=== PATIENT | male | born 1990 | race Caucasian/White ===

== ENCOUNTER → 2018-10-06 | Outpatient (CLI) | payer BC ==
[2015-05-02 20:10] VITALS: BP 146/87
--- NOTE | 2018-10-06 10:41 | RAD ---
UE VENOUS DUPLEX LEFT UPPER EXTREMITY Left upper extremity venous duplex was performed using B-mode, color-flow, and spectral Doppler. Indication: Swelling of the left upper extremity Findings: The Left internal jugular, subclavian, axillary, brachial, basilic, and cephalic veins were assessed for patency. All the vessels were found to be compressible and demonstrated phasic, competent to flow with normal augmentation. Impression: 1. Negative study for acute DVT of the left upper extremity. 2. Mild soft tissue swelling in the region of ecchymosis. Electronically signed by: Juan M Pereira MD (10/06/2018 10:38 AM) [facility]
== END | disposition home or self-care (01) ==
LOC: US 08:39
PROVIDERS: ATTEND Family Medicine
DX: S50.02XA Contusion of left elbow, initial encounter (principal); R22.32 Localized swelling, mass and lump, left upper limb; X58.XXXA Exposure to other specified factors, initial encounter; Y93.89 Activity, other specified; Y92.89 Other specified places as the place of occurrence of the external cause; Y99.8 Other external cause status
CPT/HCPCS: 93971

== ENCOUNTER → 2019-11-07 | Outpatient (CLI) | payer BC ==
[2015-05-02 20:10] VITALS: BP 146/87
--- NOTE | 2019-11-07 16:13 | RAD ---
EXAM: Ultrasound neck soft tissues. HISTORY: Palpable focus at jaw line. COMPARISON: None. FINDINGS: Sonographic evaluation of the neck soft tissues was performed at the site of concern. In the right submandibular region at the site of concern, a lymph node measures 1.3 x 1.0 x 0.9 cm. It has a prominent fatty hilus. Another small submandibular lymph nodes measure 11 mm and 7 mm, respectively. The submandibular gland is unremarkable. IMPRESSION: 1. The palpable focus corresponds with a 13 mm benign-appearing right submandibular lymph node. Recommend ongoing clinical follow-up of palpable foci, with imaging reassessment if they persist after treatment or are unstable. Electronically signed by: Donna Stevens MD (11/07/2019 4:10 PM) [facility]
== END | disposition home or self-care (01) ==
LOC: DXRAD 14:12
PROVIDERS: ATTEND Nurse Practitioner Adult Health
DX: R22.2 Localized swelling, mass and lump, trunk (principal)
CPT/HCPCS: 76536

== ENCOUNTER → 2020-03-05 | Outpatient (CLI) | payer BC ==
[2015-05-02 20:10] VITALS: BP 146/87
--- NOTE | 2020-03-05 12:43 | RAD ---
EXAM: Chest, 2 views. HISTORY: Chest pain. COMPARISON: 07/18/2016 FINDINGS: 2 views of the chest are obtained. There is no infiltrate, pleural effusion or pneumothorax. The heart is normal in size. IMPRESSION: No acute pulmonary finding. Electronically signed by: Catherine Chaparro MD (03/05/2020 12:40 PM) [facility]
--- NOTE | 2020-03-05 12:48 | EKG ---
[address] [address] Test Date: 2020-03-05 Test Time: 12:40:36 Pat Name: ANAI CUMMINGS Department: Room: Gender: M Selling Manager: : 1990 Requested By: ZAHIRA MCCALLUM Order Number: [id number] Reading MD: Rich Sanders Measurements Intervals [place] Rate: 80 P: 36 [place]: 158 QRS: 53 QRSD: 94 T: 9 QT: 336 QTc: 391 Interpretive Statements SINUS RHYTHM Electronically Signed On 03-06-2020 10:22:19 CDT by Rich Sanders
== END ==
LOC: EKG 12:25
PROVIDERS: ATTEND Nurse Practitioner Adult Health
DX: R06.02 Shortness of breath (principal); R07.9 Chest pain, unspecified; R05 Cough; Z72.0 Tobacco use
CPT/HCPCS: 71046; 93005

== ENCOUNTER 2020-05-25 18:56 | Emergency (ER) | payer BC ==
[~2020-05-25] VITALS: Ht 177.8 cm; Wt 121.8 kg
--- NOTE | 2020-05-25 18:59 | PHYS DOC ---
Past History Past Medical History: No Pertinent History Past Surgical History Circumcision, Alcohol Use: Occasionally Drug Use: Cocaine, Marijuana, Other General Adult HPI: HPI: ".. I ve been hurting all day.. down here or the Rt..... I did try to eat some pizza but I can only keep 1 bite down...." " Just too nauseated" Patient is a 29 year old male who presents with above hx complaints of right lower abdomen pain. Pain has been present all day. Does have associated nausea with the pain. Patient denies any intake bad food. Patient denies any travel or specific ill contacts. Patient has had a fever off and on through the day. Patient has had history of previous kidney stone. Patient denies any problems with defecation or urination. No history of trauma. No history immunosuppression. No history of recent travel outside the [place] area. Patient normally follows with Dr. Stephanie Montano. Review of Systems: Review of Systems: Constitutional: Complains of fever or chills Eyes: Denies change in visual acuity HENT: Denies nasal congestion or sore throat Respiratory: Denies cough or shortness of breath Cardiovascular: Denies chest pain or edema GI: Complains of right lower quadrant abdominal pain, nausea. Denies, vomiting, bloody stools or diarrhea : Denies dysuria Musculoskeletal: Denies back pain or joint pain Integument: Denies rash Neurologic: Denies headache, focal weakness or sensory changes Endocrine: Denies polyuria or polydipsia Lymphatic: Denies swollen glands Psychiatric: Denies depression or anxiety Heart Score: HEART Score for Chest Pain: HEART Score for Chest Pain Response (Comments) Value History Slighlty/Non-Suspicious 0 ECG Normal 0 Age < 45 0 Risk Factors 1 or 2 Risk Factors 1 Troponin < Normal Limit 0 Total 1 Risk Factors: Risk Factors: DM, Current or recent (<one month) smoker, HTN, HLP, family history of CAD, obesity. Risk Scores: Score 0 - 3: 2.5% MACE over next 6 weeks - Discharge Home Score 4 - 6: 20.3% MACE over next 6 weeks - Admit for Clinical Observation Score 7 - 10: 72.7% MACE over next 6 weeks - Early Invasive Strategies Family History: Family History: There is a family history of kidney stones Current Medications: Current Meds: See nursing for home meds Allergies: Allergies: No known drug allergies Physical Exam: PE: Constitutional: Moderate acute distress, non-toxic appearance. [] HENT: Normocephalic, atraumatic, bilateral external ears normal, oropharynx moist, no oral exudates, nose normal. [] Eyes: PERRLA, EOMI, conjunctiva normal, no discharge. [] Neck: Normal range of motion, no tenderness, supple, no stridor. [] Cardiovascular: Tachycardia heart rate regular rhythm, no murmur [] Lungs & Thorax: Bilateral breath sounds equal at apex auscultation [] Abdomen: Bowel sounds normal, soft, right lower tenderness on palpation, no masses, no pulsatile masses. Localizes pain to the right lower quadrant on rebound. Does have right lower flank pain on percussion. Circumcised male. Testicles descended. Nontender Skin: Warm, dry, no erythema, no rash. [] Back: No tenderness, mild to moderate right lower CVA tenderness. [] Extremities: No tenderness, no cyanosis, no clubbing, ROM intact, no edema. Has psoas sign on right. Neurologic: Alert and oriented X 3, normal motor function, normal sensory function, no focal deficits noted. [] Psychologic: Affect anxious, judgement normal, mood normal. [] EKG: EKG: My interpretation EKG shows a sinus rhythm at 74 beats minute. No findings of acute morphology. [] Radiology/Procedures: Radiology/Procedures: [] IMAGING REPORT Signed PATIENT: ANAI CUMMINGSOUNT: [id number] : 1990 LOCATION: ER AGE: 29 SEX: M EXAM STATUS: REG ER ORD. PHYSICIAN: ADDY HANSON MD REASON: Right sided abdomen pain, fever PROCEDURE: CT ABD PELV W/ORAL&IV CONTRAST Study: CT abdomen/pelvis with intravenous contrast Indication: Right-sided abdominal pain. Fever. Comparison: None. Technique: Helical CT imaging performed of the abdomen and pelvis after the intravenous administration of 75 cc Omnipaque 300 contrast. Sagittal and coronal reformats were obtained. One or more of the following individualized dose reduction techniques were utilized for this examination: 1. Automated exposure control 2. Adjustment of the mA and/or kV according to patient size 3. Use of iterative reconstruction technique. Findings: The appendix is dilated and inflamed in keeping with acute appendicitis. This is well seen on image 77 series 2 with the lumen measuring up to 1.2 cm transverse. Reactive inflammatory changes of the adjacent ilium. Periappendiceal fatty stranding but there is no fluid collection to suggest an abscess. Unremarkable lower chest. Hepatic steatosis. Unremarkable gallbladder, pancreas and adrenal glands. The spleen is mildly prominent in size. Unremarkable kidneys. Inflammatory changes along a portion of the distal right ureter. Mild circumferential urinary bladder wall thickening. The left kidney and ureter are unremarkable. Within normal limits prostate. Inflammatory changes adjacent to the cecum. Otherwise the colon is within normal limits. Nonobstructed small bowel. Unremarkable stomach. Normal aortic caliber. No lymphadenopathy. Injection-related changes at the ventral right lower quadrant subcutaneous tissues. No acute or aggressive osseous process. Femoral head bone islands. Impression: 1. Dilated and inflamed appendix in keeping with acute appendicitis. No complicating features such as rupture or abscess formation. Reactive inflammatory changes of the adjacent cecum, ileum and a portion of the right ureter. 2. Hepatic steatosis. Electronically signed by: SYED PURI MD (05/25/2020 10:46 PM) [id number] DICTATED AND SIGNED BY: SYED PURI MD DATE: 05/25/206 CC: ADDY HANSON MD; ZAHIRA MCCALLUM NP ~ Course & Med Decision Making: Course & Med Decision Making Pertinent Labs and Imaging studies reviewed. (See chart for details) Discussed presentation, testing and treatment plan with and Dr. Rosenthal- Transfer to [facility]- Impression: 1. Abdomen Pain 2. Acute appendicitis 3. Leukocytosis 16.2 4. Lactic acid 1.1 5. Tobacco and Marijuana Use [] Dragon Disclaimer: Dragon Disclaimer: This electronic medical record was generated, in whole or in part, using a voice recognition dictation system. Departure Departure: Disposition: 01 HOME/RESIDENCE PRIOR TO ADM Condition: STABLE Referrals: ZAHIRA MCCALLUM NP (PCP) Justification of Admission: Justification of Admission: Justification of Admission Dx: Yes (Acute Appendicitis) Dragon Disclaimer This chart was dictated in whole or in part using Voice Recognition software in a busy, high-work load, and often noisy Emergency Department environment. It may contain unintended and wholly unrecognized errors or omissions. ADDY HANSON MD May 25, 2020 18:59
[2020-05-25] MEDS ORDERED: ONDANSETRON PF 4 MG/2 ML VIAL. ONE (19:01)
[2020-05-25] MEDS ORDERED: IV RINGERS SOLUTION,LACTATED 1,000 ML IV SCH (19:01)
[2020-05-25] MEDS ORDERED: MORPHINE SULFATE 10 MG/ML SYRINGE. ONE (19:02)
[2020-05-25] MEDS ORDERED: FAMOTIDINE 20 MG/2 ML VIAL IVP ONE (19:15)
[2020-05-25] MEDS ORDERED: ONDANSETRON PF 4 MG/2 ML VIAL. IVP ONE (19:15)
[2020-05-25] MEDS ORDERED: KETOROLAC 30 MG/ML VIAL. IVP ONE (19:15)
--- NOTE | 2020-05-25 19:52 | RAD ---
Three-view acute abdominal series. HISTORY:, Pain, fever 3 views were taken for an acute abdominal series. Lungs are clear. Heart is normal in size. There is no pleural effusion. There is no free air on the upright view of the abdomen or abnormal air-fluid levels. There are no abnormal calcifications. Bowel pattern is normal. IMPRESSION: 1. No acute chest disease. 2. No bowel obstruction or acute finding in the abdomen. 3. No abnormal calcifications. Electronically signed by: Lam Hawley MD (05/25/2020 7:49 PM) [facility]
[2020-05-25] MEDS ORDERED: MORPHINE SULFATE 10 MG/ML SYRINGE. SQ ONE (20:00)
--- NOTE | 2020-05-25 20:18 | EKG ---
[address] [address] Test Date: 2020-05-25 Test Time: 19:54:39 Pat Name: ANAI RAYMUNDOLANA Department: Room: Gender: M Family Sociologist: : 1990 Requested By: ADDY HANSON Order Number: [id number] Reading MD: Measurements Intervals [place] Rate: 74 P: 43 [place]: 156 QRS: 59 QRSD: 100 T: 0 QT: 346 QTc: 389 Interpretive Statements SINUS RHYTHM OTHERWISE NORMAL ECG RI6.02 No previous ECG available for comparison
[2020-05-25 20:20] LABS: BASO % 0 % (0-3); EOS % 0 % (0-3); HEMATOCRIT 50.2 % (39.0-53.0); HEMOGLOBIN 17.1 g/dL (13.0-17.5); LYMPH # 1.8 x10^3/uL (1.0-4.8); LYMPH % 11 % (24-48); MEAN CORPUSCULAR HEMOGLOBIN 33 pg (25-35); MEAN CORPUSCULAR HGB CONC 34 g/dL (31-37); MEAN CORPUSCULAR VOLUME 96 fL (79-100); MONO # 1.2 x10^3/uL (0.0-1.1); MONO % 7 % (0-9); NEUT # 13.2 x10^3uL (1.8-7.7); NEUT % 81 % (31-73); PLATELET COUNT 245 x10^3/uL (140-400); RED BLOOD COUNT 5.23 x10^6/uL (4.30-5.70); RED CELL DISTRIBUTION WIDTH 12.9 % (11.5-14.5); WHITE BLOOD COUNT 16.2 x10^3/uL (4.0-11.0)
[2020-05-25 20:23] LABS: CALCIUM 9.1 mg/dL (8.5-10.1); CREATININE 1.1 mg/dL (0.7-1.3); GFR 78.6; POTASSIUM 3.4 mmol/L (3.5-5.1)
[2020-05-25 20:26] LABS: ALBUMIN 3.9 g/dL (3.4-5.0); DIRECT BILIRUBIN 0.4 mg/dL (0.0-0.2); TOTAL BILIRUBIN 1.8 mg/dL (0.2-1.0); TOTAL PROTEIN 8.3 g/dL (6.4-8.2)
[2020-05-25 20:34] LABS: BARBITURATES NEG (NEG); BENZODIAZEPINES NEG (NEG); CANNABINOIDS POS (NEG); COCAINE NEG (NEG); METHADONE NEG (NEG); OPIATES NEG (NEG); PHENCYCLIDINE NEG (NEG)
[2020-05-25 20:35] LABS: AMPHETAMINE/METHAMPHETAMINE NEG (NEG)
[2020-05-25 20:42] LABS: BILIRUBIN,URINE NEG (NEG); CLARITY,URINE CLEAR; COLOR,URINE YELLOW; GLUCOSE,URINE NEG (NEG)
[2020-05-25 20:43] LABS: BACTERIA,URINE 0 /HPF (0-FEW); NITRITE,URINE POS (NEG); RBC,URINE OCC /HPF (0-2); SQUAMOUS EPITHELIAL CELL,UR OCC /LPF; UROBILINOGEN,URINE 0.2 mg/dL (0.2 mg/dL); WBC,URINE OCC /HPF (0-4)
[2020-05-25 20:54] LABS: % BANDS 4 % (0-9); % LYMPHS 11 % (24-48); % MONOS 5 % (0-10); % SEGS 80 % (35-66); PLT ESTIMATE ADEQUATE (ADEQUATE)
[2020-05-25] MEDS ORDERED: IOHEXOL 300 MG/ML 75 ML VIAL. IV ONE (21:00)
[2020-05-25] MEDS ORDERED: IOHEXOL 240 MG/ML 50ML VIAL. PO ONE (21:00)
[2020-05-25] MEDS ORDERED: cefTRIAXone SODIUM 1 GM VIAL ONE (21:27)
[2020-05-25] MEDS ORDERED: IV NORMAL SALINE 50ML 50 ML ONE (21:27)
--- NOTE | 2020-05-25 22:50 | RAD ---
Study: CT abdomen/pelvis with intravenous contrast Indication: Right-sided abdominal pain. Fever. Comparison: None. Technique: Helical CT imaging performed of the abdomen and pelvis after the intravenous administration of 75 cc Omnipaque 300 contrast. Sagittal and coronal reformats were obtained. One or more of the following individualized dose reduction techniques were utilized for this examination: 1. Automated exposure control 2. Adjustment of the mA and/or kV according to patient size 3. Use of iterative reconstruction technique. Findings: The appendix is dilated and inflamed in keeping with acute appendicitis. This is well seen on image 77 series 2 with the lumen measuring up to 1.2 cm transverse. Reactive inflammatory changes of the adjacent ilium. Periappendiceal fatty stranding but there is no fluid collection to suggest an abscess. Unremarkable lower chest. Hepatic steatosis. Unremarkable gallbladder, pancreas and adrenal glands. The spleen is mildly prominent in size. Unremarkable kidneys. Inflammatory changes along a portion of the distal right ureter. Mild circumferential urinary bladder wall thickening. The left kidney and ureter are unremarkable. Within normal limits prostate. Inflammatory changes adjacent to the cecum. Otherwise the colon is within normal limits. Nonobstructed small bowel. Unremarkable stomach. Normal aortic caliber. No lymphadenopathy. Injection-related changes at the ventral right lower quadrant subcutaneous tissues. No acute or aggressive osseous process. Femoral head bone islands. Impression: 1. Dilated and inflamed appendix in keeping with acute appendicitis. No complicating features such as rupture or abscess formation. Reactive inflammatory changes of the adjacent cecum, ileum and a portion of the right ureter. 2. Hepatic steatosis. Electronically signed by: SYED PURI MD (05/25/2020 10:46 PM) [id number]
[2020-05-26 00:41] VITALS: BP 121/64
== END 2020-05-26 01:53 | disposition short-term general hospital (02) ==
LOC: ER 18:56
DX: K35.890 Other acute appendicitis without perforation or gangrene (principal); R10.31 Right lower quadrant pain; D72.828 Other elevated white blood cell count; R11.0 Nausea; R50.9 Fever, unspecified; F12.90 Cannabis use, unspecified, uncomplicated; F14.90 Cocaine use, unspecified, uncomplicated; Z98.890 Other specified postprocedural states
CPT/HCPCS: 36415; 74022; 74177; 80048; 80076; 80307; 81001; 82150; 82550; 83605; 83690; 84484; 85007; 85025; 85610; 85730; 87040; 87086; 93005; 96365; 96368; 96372; 96375; 99285; C9803; J0696; J1885; J2270; J2405; J3490; J7120; Q9966; Q9967; U0003